=== PATIENT | female | born 1970 | race Caucasian/White ===

== ENCOUNTER 2016-10-29 11:05 | Emergency (ER) | payer OTHER ==
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
[~2016-10-29 11:05] MED LIST: BACLOFEN20 M1; CERTAGEN PO; HYDROCODON-ACE1 EAC4 PO; KLONOPIN1 MG PO; MULTI-DAY VITAM1 TAB; MULTIVITAMIN1 UDCAP PO; NEURONTIN; NORDITROPI SQ; OSTEO BI-FLEX1 EAC1; PARLODEL2.5 MG PO; PEPCID AC20 M2 PO; PHENERGAN25 M1 DOB; PRILOSEC; ULTRAM PO
== END 2016-10-29 13:09 | disposition home or self-care (01) ==
LOC: SED 11:05
DX: S16.1XXA Strain of muscle, fascia and tendon at neck level, initial encounter (principal); S39.012A Strain of muscle, fascia and tendon of lower back, initial encounter; J45.909 Unspecified asthma, uncomplicated; F17.200 Nicotine dependence, unspecified, uncomplicated; V49.40XA Driver injured in collision with unspecified motor vehicles in traffic accident, initial encounter; Y92.219 Unspecified school as the place of occurrence of the external cause
CPT/HCPCS: 70450; 72072; 72100; 72125; 99284

== ENCOUNTER → 2017-02-04 | Outpatient (CLI) | payer OTHER ==
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
== END | disposition home or self-care (01) ==
LOC: SRAD 16:18
DX: M25.511 Pain in right shoulder (principal); M47.896 Other spondylosis, lumbar region
CPT/HCPCS: 72100; 73030

== ENCOUNTER 2017-02-17 19:52 | Emergency (ER) | payer OTHER, MEDICARE ==
--- NOTE | ~2017-02-17 | CR173 ---
[facility] A Service of [facility] & [facility] RADIOLOGY TEXT RESULTS PATIENT: HILLARY WYNNE LOCATION: SED : 70 UNIT #: [id number] AGE: [address]: MONTRELL KIM SEX: F ORDER DR: [id number] [place] [id number] E MR#: [id number] Acc #: [id number] NAME: HILLARY WYNNE. : 1970 SEX: F STUDY DATE/TIME: 02/17/2017 20:12 UNIT: SED ROOM: STUDY DESCRIPTION: CR Knee 3 Views Rt Attending Physician: Montrell Kim Aprn Ordering Physician: Montrell Kim Aprn Primary Care Physician: Daquan Zhu M.D. MEDICAL IMAGING REPORT This report is preliminary unless electronic signature is present. EXAM Right knee, 3 views HISTORY Acute anterior knee pain. Fell at [place] and twisted knee yesterday. FINDINGS AP and lateral projection of the knee shows smooth articular anatomy without indication of fracture or dislocation at the major weight-bearing surface of the knee. There is no indication of radiopaque foreign body about the knee surface or joint effusion. IMPRESSION Normal knee. Dictated by... Rachel Randall M.D. THIS IS AN ELECTRONICALLY VERIFIED REPORT Rachel Randall M.D. at 02/18/2017 1:16 PM JIM/waylon TD: 02/17/2017 21:33 JOB #: [id number] MEDICAL IMAGING REPORT Page 1 of 1
== END 2017-02-17 21:06 | disposition home or self-care (01) ==
LOC: SED 19:52
DX: S83.421A Sprain of lateral collateral ligament of right knee, initial encounter (principal); S83.411A Sprain of medial collateral ligament of right knee, initial encounter; F17.210 Nicotine dependence, cigarettes, uncomplicated; X50.1XXA Overexertion from prolonged static or awkward postures, initial encounter; Y92.9 Unspecified place or not applicable
CPT/HCPCS: 29530; 73562; 99283